=== PATIENT | male | born 1975 | race Caucasian/White ===

== ENCOUNTER 2019-07-09 20:10 | Emergency (ER) | payer BC ==
[2019-07-09] MEDS ORDERED: Morphine 4 MG/ML VIAL (1 ml) 4 MG/ML VIAL IV ONE (21:46)
[2019-07-09] MEDS ORDERED: Ondansetron INJ* 2 MG/ML VIAL IV ONE (21:49)
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
[2019-07-09 23:50] VITALS: BP 136/86
== END 2019-07-09 23:45 | disposition home or self-care (01) ==
LOC: ED 20:10
DX: S52.301A Unspecified fracture of shaft of right radius, initial encounter for closed fracture (principal); V19.9XXA Pedal cyclist (driver) (passenger) injured in unspecified traffic accident, initial encounter; Y93.55 Activity, bike riding; Y92.9 Unspecified place or not applicable; Z88.0 Allergy status to penicillin; Z87.891 Personal history of nicotine dependence
CPT/HCPCS: 96374; 96375; 99282; J2270; J2405

== ENCOUNTER 2019-07-11 11:32 | Day surgery (SDC) | payer BC, OTHER ==
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
[~2019-07-11 11:32] MED LIST: Buffered Lidocaine 1% SYRIN* 1 ML/SYRINGE INTRADERM ONE; Dexamethasone IV* 4 MG/ML 1 ML (4 MG) IV SLOW PU ONE; Famotidine IV* 10 MG/ML 2 ML (20 mg) IV ONE; Lactated Ringers 1000 ML Bag* 1,000 ML IV SCH
[2019-07-11] MEDS ORDERED: Dexamethasone IV* 4 MG/ML 1 ML (4 MG) ONE (11:54)
[2019-07-11] MEDS ORDERED: Famotidine IV* 10 MG/ML 2 ML (20 mg) ONE (11:54)
[2019-07-11] MEDS ORDERED: Clindamycin 900 MG IVPREMIX(* 900 MG/50 ML SDV IV ONE (12:19)
[2019-07-11] MEDS ORDERED: Midazolam* 1 MG/ML 5 ML VIAL (5 MG) ONE (12:45)
[2019-07-11] MEDS ORDERED: fentaNYL* 50 MCG/ML 5 ML VIAL (250 MCG VIAL) ONE (12:45)
[2019-07-11] MEDS ORDERED: Propofol* 10 MG/ML 20 ML BTL ONE (12:46)
[2019-07-11] MEDS ORDERED: Lidocaine 2% PF * 5 ML VIAL ONE (12:46)
[2019-07-11] MEDS ORDERED: Ketorolac INJ* 30 MG/ML 1 ML VIAL ONE (12:46)
[2019-07-11] MEDS ORDERED: Ondansetron INJ* 2 MG/ML VIAL ONE (12:46)
[2019-07-11] MEDS ORDERED: Bupivacaine 0.5% SDV PF* 30ML VIAL ONE (12:55)
[2019-07-11] MEDS ORDERED: fentaNYL* 50 MCG/ML 2 ML VIAL (100 MCG VIAL) IV PRN (13:23)
[2019-07-11] MEDS ORDERED: HYDROmorphone INJ1* 1 MG/ML SYRINGE IV PRN (13:23)
[2019-07-11] MEDS ORDERED: oxyCODONE/Acetamin 5/325 MG* TAB PO PRN (13:23)
[2019-07-11] MEDS ORDERED: Naloxone* 0.4 MG/ML 1 ML VIAL IV PRN (13:23)
[2019-07-11] MEDS ORDERED: DiMENhydriNATE IV* 50 MG/ML VIAL IV PUSH PRN (13:23)
[2019-07-11] MEDS ORDERED: Ondansetron INJ* 2 MG/ML VIAL IV PRN (13:23)
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
[2019-07-11 15:42] VITALS: BP 130/90
== END 2019-07-11 15:37 | disposition home or self-care (01) ==
LOC: OREAST 11:32
PROVIDERS: ATTEND Orthopaedic Surgery
DX: S52.301A Unspecified fracture of shaft of right radius, initial encounter for closed fracture (principal); V19.3XXA Pedal cyclist (driver) (passenger) injured in unspecified nontraffic accident, initial encounter; Y93.55 Activity, bike riding; Y92.9 Unspecified place or not applicable; Z87.891 Personal history of nicotine dependence
CPT/HCPCS: 76000; C1713; C1776; J1100; J1885; J2250; J2405; J2704; J3010; J3490

== ENCOUNTER 2020-01-16 16:49 | Inpatient (IN) | payer OTHER ==
--- NOTE | 2020-01-16 18:59 | ED ---
Complex/Multi-Sys Presentation - HPI Summary HPI Summary: 44 year old male presents with low platelets. he woke up with blisters in his mouth. He noted petechiae across his body. he also had old blood in his nose. On Wednesday he noticed some blood in his urine. He states that he lifted something at work and develop ecchymosis of his abdomen right away. He states every time he scratches his arm he gets petechiae. He states he's never had this before. Denies any recent illness. Has no medical conditions. Denies any drug use. He was seen by his primary and was found to have low platelets. heme was consulted and they recommend a platelet transfusion. he is only on HCC , NMN, and resveratol. he does drink alcohol. - History Of Current Complaint Chief Complaint: EDGeneral Time Seen by Provider: 01/16/20 18:19 - Allergies/Home Medications Allergies/Adverse Reactions: Allergies Allergy/AdvReac Type Severity Reaction Status Date / Time Penicillins Allergy Unknown Verified 07/11/19 12:10 Reaction Details PMH/Surg Hx/FS Hx/Imm Hx Endocrine/Hematology History: Denies: Hx Anticoagulant Therapy Respiratory History: Denies: Hx Asthma Infectious Disease History: No Infectious Disease History: Denies: Traveled Outside the [place] in Last 30 Days - Family History Known Family History: Positive: Non-Contributory - Social History Alcohol Use: Weekly Alcohol Amount: 'most days of the week, 2-3 drinks/time' Substance Use Type: Reports: Marijuana Smoking Status (MU): Former Smoker Review of Systems Negative: Fever Negative: Chest Pain Negative: Shortness Of Breath Positive: Rash All Other Systems Reviewed And Are Negative: Yes Physical Exam Triage Information Reviewed: Yes Vital Signs On Initial Exam: Initial Vitals Temp Pulse Resp BP Pulse Ox 97.4 F 67 18 164/105 98 01/16/20 16:53 01/16/20 16:53 01/16/20 16:53 01/16/20 16:53 01/16/20 16:53 Vital Signs Reviewed: Yes Appearance: Positive: Well-Appearing Skin: Positive: Other - petechaie noted across body, ecchymosis to abd Head/Face: Positive: Normal Head/Face Inspection Eyes: Positive: Normal, EOMI, RENEE, Conjunctiva Clear ENT: Positive: Pharynx normal, TMs normal Respiratory/Lung Sounds: Positive: Clear to Auscultation, Breath Sounds Present Cardiovascular: Positive: Normal, RRR Abdomen Description: Positive: Nontender, Soft Bowel Sounds: Positive: Present Musculoskeletal: Positive: Normal Neurological: Positive: Normal Psychiatric: Positive: Normal Procedures - Sedation Patient Received Moderate/Deep Sedation with Procedure: No Diagnostics - Vital Signs Vital Signs Temp Pulse Resp BP Pulse Ox 01/16/20 16:53 97.4 F 67 18 164/105 98 - Laboratory Result Diagrams: 01/16/20 18:50 01/16/20 18:50 Lab Statement: Any lab studies that have been ordered have been reviewed, and results considered in the medical decision making process. Complex Multi-Symp Course/Dx Course Of Treatment: 44 year old male presents with low platelets. he woke up with blisters in his mouth. He noted petechiae across his body. he also had old blood in his nose. On Wednesday he noticed some blood in his urine. He states that he lifted something at work and develop ecchymosis of his abdomen right away. He states every time he scratches his arm he gets petechiae. He states he's never had this before. Denies any recent illness. Has no medical conditions. Denies any drug use. He was seen by his primary and was found to have low platelets. heme was consulted and they recommend a platelet transfusion. On exam has petechiae body. wbc normal. platelets 4. h/h normal. liver and bilirubin normal. discussed with dr Vazquez who came and saw patient. he states it is itp and discussed as patient does not want transfusion platelets will do not do such at this time. patient also declined ivig. will treat with decadron 40mg x4 days. recommends admission and cbc daily. discussed with dr hemphill who agrees to admit. - Diagnoses Differential Diagnoses/HQI/PQRI: Metabolic Abnormality, Sepsis, Other - thrombocytopenia Provider Diagnoses: Acute ITP Discharge ED - Sign-Out/Discharge Documenting (check all that apply): Patient Departure - Discharge Plan Condition: Stable Disposition: ADMITTED TO [facility] - Billing Disposition and Condition Condition: STABLE Disposition: Admitted to [facility]
[2020-01-16 19:16] LABS: Activated Partial Thrombo Time 32.6 seconds (26.0-38.0); INR 0.97 (0.82-1.09)
[2020-01-16 19:32] LABS: ABS Eosinophils 0.1 10^3/ul (0-0.6); ABS Lymphocytes 1.6 10^3/ul (1.0-4.8); ABS Monocytes 0.4 10^3/ul (0-0.8); Eosinophil % 1.5 %; Hematocrit 51 % (42-52); Hemoglobin 17.1 g/dL (14.0-18.0); Lymphocyte % 30.4 %; Mean Corpuscular HGB Conc 34 g/dL (31-36); Mean Corpuscular Hemoglobin 29 pg (27-31); Mean Corpuscular Volume 86 fL (80-94); Mean Platelet Volume 12.3 fL (7.4-10.4); Nucleated Red Blood Cells % 0.1; Red Blood Count 5.87 10^6 /uL (4.18-5.48); Red Cell Distribution Width 15 % (10-15); White Blood Count 5.1 10^3/uL (3.5-10.8)
[2020-01-16 19:33] LABS: Large Platelets Present
[2020-01-16 19:35] LABS: Platelet Count 4 10^3/uL (150-450)
[2020-01-16 19:40] LABS: TSH (Thyroid Stimulating Horm) 7.29 mcIU/mL (0.34-5.60)
[2020-01-16 19:59] LABS: ALT 61 U/L (7-52); Albumin 4.8 g/dL (3.2-5.2); Albumin/Globulin Ratio 1.7 (1-3); Alkaline Phosphatase 58 U/L (34-104); BUN/Creatinine Ratio 12.1 (8-20); Blood Urea Nitrogen 12 mg/dL (6-24); C Reactive Protein < 1.00 mg/L (<8.01); CO2 Carbon Dioxide 23 mmol/L (22-32); Calcium 9.9 mg/dL (8.6-10.3); Chloride 100 mmol/L (101-111); EGFR African American 99.4 (>60); EGFR Non-African American 82.1 (>60); Globulin 2.9 g/dL (2-4); Glucose 94 mg/dL (70-100); Magnesium 2.4 mg/dL (1.9-2.7); Sodium 135 mmol/L (135-145); Total Protein 7.7 g/dL (6.4-8.9)
[2020-01-16 20:13] LABS: Fibrinogen 236.9 mg/dL (110.8-404.3)
[2020-01-16 20:14] LABS: Corrected Retic Count 1.7 % (0.5-1.5); Hematocrit for Retic CNT 50 % (42-52); Immature Retic Fraction 0.53; RBC Retic Count 5.95 10^6/uL (4.18-5.48)
[2020-01-16 20:27] LABS: Anion Gap 12 mmol/L (2-11); Potassium 4.8 mmol/L (3.5-5.0)
[2020-01-16 20:32] LABS: LDH 275 U/L (140-271)
[2020-01-16 20:34] LABS: AST 35 U/L (13-39)
[2020-01-16 21:06] LABS: Hepatitis B Surface Antigen Nonreactive (Nonreactive)
[2020-01-16] MEDS ORDERED: Dexamethasone TAB* 4 MG PO ONE (21:10)
[2020-01-16 21:24] LABS: Hepatitis C Antibody Negative (Negative)
--- NOTE | 2020-01-16 21:42 | CONSULT ---
Consultation - Reason for Consultation Reason for Consultation: Thrombocytopenia Ordering Provider: Ronna Jimenez Chief Complaint: I am asked to evaluate this pleasant 44 year old gentleman who has presented to he ER with a platelet count of 4k.He was interviewed in the ER in the presence of his significant other. He notes over the past few days the development of petechiae involving the lower extremities as well as a "blood blister" on his tongue. He also notes an episode of hematuria which has since resolved. He otherwise feels well without the presence of systemic symptoms. No weight loss, no night sweats, no recent illnesses nor ill contacts. He does note a great deal of stress at work and drinking more heavily then in the past. No Quinine containing products. He reports no fever, no neurologic symptoms. No history of autoimmune disorders, hepatitis, HIV nor family history of blood dyscrasias. No new medications In the ER WBC 5.1 Hg 17 platelets 4 MPV elevated at 12.3, WBC differential normal. PTinr 0.97 and PTT 32, TSH mildly elevated at 7.29 with T4 pending. Retics 1.7, creatinine 0.99 bilirubin 0.7 AST 35 ALT 61 LDH 275 Afebrile at 97.4 History of Present Illness: As noted above isolated thrombocytopenia with findings as outlined Allergies/Medications Allergies/Adverse Reactions: Allergies Allergy/AdvReac Type Severity Reaction Status Date / Time Penicillins Allergy Unknown Verified 07/11/19 12:10 Reaction Details History - Past Medical History Hx Arthritis: No Hx Blood Dyscrasias: Yes - current thrombocytopenia Hx Cancer: No Hx Cardiac Disorders: No Hx Circulatory Problems: No Hx Diabetes: No Hx Hypercholesterolemia: No Hx Hypertension: Yes - current in ER Hx Musculoskeletal Deformity: No Surgical History: None Hx Endocrine Problem: No - Family History Hx Family Cancer: No Hx Family Cerebrovascular Accident: No Hx Family Cardiac Disorders: No Hx Family Rheumatoid Arthritis: No - Social History Hx Alcohol Use: Yes - More significant recently Hx Tobacco Use: No Review of Systems - Review of Systems Dermatology: Positive: Rash - lower extremity petechiae HEENT: Positive: Other - small "blood blister" tongue Eyes: Positive: Normal Thyroid: Positive: Other - elevated TSH in ER Pulmonary: Positive: Normal Cardiology: Positive: Normal Gastroenterology: Positive: Normal Genital - Urinary: Positive: Hematuria Musculoskeletal: Negative: Joint Pain, Joint Stiffness, Arthritis, Osteoporosis, Low Back Pain , Sciatica, Joint Deformities, Kyphoscoliosis, Other Endocrinology: Positive: Normal Hematologic/Lymphatic: Positive: Easy Bruising, Other - thrombocytopenia Neurology: Positive: Normal Psychiatry: Positive: Other - stress Allergic/Immunologic: Negative: Hx Anaphylaxis, Hx Angioedema, Hx Environmental, Hx Seasonal, Asthma, Hx HIV, Immunocompromise, Swollen Glands LymphNodes, Other Physical Exam - Physical Exam Physical Examination: Alert and conversant PERRLA, EOMI Neck supple Cardiac RRR Abdomen soft and nontender Neuro nonfocal Petechiae lower extremities Oropharynx with small "blood blister" left lateral tongue margin Results - Lab Results Lab Results: 01/16/20 01/16/20 01/16/20 18:50 18:50 18:50 WBC 5.1 RBC 5.87 H RBC (Retic) 5.95 H Hgb 17.1 Hct 51 HCT (Retic) 50 MCV 86 MCH 29 MCHC 34 RDW 15 Plt Count 4 L* MPV 12.3 H Neut % (Auto) 59.1 Lymph % (Auto) 30.4 Upson % (Auto) 8.2 Eos % (Auto) 1.5 Baso % (Auto) 0.8 Absolute Neuts (auto) 3.0 Absolute Lymphs (auto) 1.6 Absolute Monos (auto) 0.4 Absolute Eos (auto) 0.1 Absolute Basos (auto) 0.0 Absolute Nucleated RBC 0.0 Nucleated RBC % 0.1 Large Platelets Present Retic Count, Calc 1.5 Corrected Retic Count 1.7 H Retic Shift Factor 1.0 Retic Production Index 1.70 Immature Retic Fraction 0.53 Mean Retic Volume 107.5 INR (Anticoag Therapy) 0.97 APTT 32.6 Fibrinogen 236.9 Sodium 135 Potassium 4.8 Chloride 100 L Carbon Dioxide 23 Anion Gap 12 H BUN 12 Creatinine 0.99 Est GFR ( Amer) 99.4 Est GFR (Non-Af Amer) 82.1 BUN/Creatinine Ratio 12.1 Glucose 94 Calcium 9.9 Magnesium 2.4 Total Bilirubin 0.70 AST 35 ALT 61 H Alkaline Phosphatase 58 Lactate Dehydrogenase 275 H C-Reactive Protein < 1.00 Total Protein 7.7 Albumin 4.8 Globulin 2.9 Albumin/Globulin Ratio 1.7 TSH 7.29 H Blood Type Antibody Screen 01/16/20 18:50 WBC RBC RBC (Retic) Hgb Hct HCT (Retic) MCV MCH MCHC RDW Plt Count MPV Neut % (Auto) Lymph % (Auto) Upson % (Auto) Eos % (Auto) Baso % (Auto) Absolute Neuts (auto) Absolute Lymphs (auto) Absolute Monos (auto) Absolute Eos (auto) Absolute Basos (auto) Absolute Nucleated RBC Nucleated RBC % Large Platelets Retic Count, Calc Corrected Retic Count Retic Shift Factor Retic Production Index Immature Retic Fraction Mean Retic Volume INR (Anticoag Therapy) APTT Fibrinogen Sodium Potassium Chloride Carbon Dioxide Anion Gap BUN Creatinine Est GFR ( Amer) Est GFR (Non-Af Amer) BUN/Creatinine Ratio Glucose Calcium Magnesium Total Bilirubin AST ALT Alkaline Phosphatase Lactate Dehydrogenase C-Reactive Protein Total Protein Albumin Globulin Albumin/Globulin Ratio TSH Blood Type O Positive Antibody Screen Negative Assessment and Plan Impression: 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 Normal Hg, neurological status, bilirubin and creatinine inconsistent with TTP Plan: Reviewed in detail with patient, significant other and Emergency room staff. Additional lab work for ELMA, Hepatitis B and C serologies, HIV serology, H Pylori AB, Serum IGA. Initiate Dexamethasone 40 mg PO or IV Daily for four days with PPI coverage. If necessary this can be pulsed every 14 days for 1-2 additional cycles dependent upon Platelet response. Given prior hematuria counselled patient for consideration of IVIG at 1000 mg/ kg Daily for 2 days (Total dosing 2000 mg/kg) and consideration for platelet transfusion should active bleeding develop or recur. After a thorough review of options he has made an informed decision to decline IVIG at this time. Obtain a serum IgA level to exclude IgA deficiency should IVIG be utilized in the future Follow serial platelet counts and follow up labs as ordered . Will continue to follow
[2020-01-16 21:43] LABS: HIV 4th Generation Nonreactive (Nonreactive)
[2020-01-16 22:01] LABS: T4, Total 7.51 mcg/dL (6.09-12.23)
[2020-01-17] MEDS: Pantoprazole TAB * 40 MG TAB PO SCH ×2 (00:07→07:36)
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
--- NOTE | 2020-01-17 02:26 | HP ---
HISTORY AND PHYSICAL: DATE OF ADMISSION: ADDENDUM: He reported that he had 2 more clear urinations and he was evaluated by Dr. Aron Vazquez of Hematology/Oncology, who discussed possible therapy such as steroids and IVIG. The patient wanted to avoid IV steroids, as p.o. steroids could be given, and was hesitant to proceed with IVIG. He was started on dexamethasone 40 mg p.o. versus IV daily for 4 days. Additional lab work was ordered to rule out secondary causes of what is suspected to be ITP. He is on 3 herbal supplements, which he restarted it about 6 weeks ago. These include active hexose correlated compound, nicotinamide, mononucleotide, and resveratrol. PAST MEDICAL HISTORY: Some anxiety with recent alprazolam order, which he has not picked up yet and HSV. PAST SURGICAL HISTORY: ORIF of the right forearm fracture in June [address] Santa and vasectomy. MEDICATIONS: None. ALLERGIES: He suspects PENICILLIN allergy as a child, unknown details. FAMILY HISTORY: His father of brain cancer at age 55. His mother is alive at age 73. Paternal aunt of breast cancer. Another paternal aunt had a type of cancer, which required lymph node biopsy. No children. SOCIAL HISTORY: The patient is a former smoker, half-pack per day for 7 years, quit about 10 years ago. He drinks about 10 drinks a week. No drug use. He works at a [employer] for the last 9 months, increasingly stressful job working about 12 hours a day and some lifting component. He desires to be a full code. His medical surrogate is his significant other, Kelly Jackson. REVIEW OF SYSTEMS: A complete 14-point review of systems negative except as per HPI. He denies any abdominal pain, diarrhea, melena, hematochezia or hemoptysis. Epistaxis has resolved. He also attests that he has been extremely good and sensitive for a long time. He recently started probiotic, which lessened his symptoms, but then he started to eat more gluten given stress eating. PHYSICAL EXAMINATION VITAL SIGNS: Temperature 97.4, heart rate 67, respiratory rate 18, satting 98 % on room air, blood pressure 164/105. HEENT: Normocephalic, atraumatic. Pupils equally round and reactive to light. Extraocular motions intact. I do not appreciate any blood blisters or other hemorrhage inside the mouth. LUNGS: Clear to auscultation bilaterally with no wheezing, rales or rhonchi. CARDIOVASCULAR: Regular rate and rhythm. No murmurs, rubs or gallops. ABDOMEN: Soft, nontender, nondistended. EXTREMITIES: Warm, well perfused. No peripheral edema. SKIN: There are multiple petechiae and most prominent on the lower extremities , but some on his hands scattered throughout his body. NEURO: Cranial nerves II through XII intact. Alert and oriented x3. DIAGNOSTIC STUDIES/LAB DATA: White count 5.1, hemoglobin 17.1, hematocrit 51, platelets , retic count 1.7, RPI 1.7, INR is 0.97, aPTT 32.6, fibrinogen 236.9. Sodium 135, potassium 4.8, chloride 100, carbon dioxide 23, BUN 12, creatinine 0.99, glucose 94, magnesium 2.4, calcium 9.9, total bili is 0.7, AST 35, ALT 61, alk phos 58. LDH 275, CRP less than 1, total protein 7.7, albumin 4.8, TSH 7.29, total T4 is 7.51, free T3 is 3.80. Hepatitis B surface antigen nonreactive, hepatitis C antibody negative. HIV1 and 2 antibodies and p24 antigens of 4th generation nonreactive. Imaging: None. EKG: None. ASSESSMENT AND PLAN: Stella Panda is a 44-year-old male with no significant past medical history, although frequent alcohol use and is on multiple herbal supplements including AHCC (active hexose correlated compound), nicotinamide, mononucleotide, and resveratrol, whose has had about a week of increased fatigue and then development of petechiae, epistaxis, and hematuria. He has had outpatient platelet count less than 1000 the day prior to admission, appreciate recommendations from Hematology/Oncology, Dr. Aron Vazquez, who does recommend additional lab work to include Tanmay-Tovar virus, stool Helicobacter pylori test, immunoglobulin A of the serum, ELMA, and initiation of dexamethasone 40 mg p.o. daily. We will get CBCs daily. We will wait for a accounts payable supervisor peripheral smear examination, but low suspicion for TTP given his lack of other abdominal signs, altered mental status, anemia or renal dysfunction. He can eat a heart-healthy diet. He is a full code. [id number]/[facility] #: [id number] [facility]
[2020-01-17 07:31] LABS: ABS Lymphocytes 0.8 10^3/ul (1.0-4.8); ABS Neutrophils 3.9 10^3/ul (1.5-7.7); Eosinophil % 0.1 %; Hematocrit 52 % (42-52); Hemoglobin 18.1 g/dL (14.0-18.0); Mean Corpuscular HGB Conc 35 g/dL (31-36); Mean Corpuscular Hemoglobin 29 pg (27-31); Mean Corpuscular Volume 85 fL (80-94); Mean Platelet Volume 11.5 fL (7.4-10.4); Nucleated Red Blood Cells % 0.2; Platelet Count 4 10^3/uL (150-450); Red Blood Count 6.14 10^6 /uL (4.18-5.48); Red Cell Distribution Width 14 % (10-15); White Blood Count 4.7 10^3/uL (3.5-10.8)
[2020-01-17] MEDS: Dexamethasone TAB* 4 MG PO SCH (07:37)
--- NOTE | 2020-01-17 07:41 | PN ---
Subjective Date of Service: 01/17/20 Interval History: HD 2 on 01/17 44 M with no past medical history presented with epistaxis, easy bruising, gross hematuria and petechiae preceeded by wheezing, BUTLER and fatigue. He was seen in his PCP office and was sent to ER because of thrombocytopenia. His platelet count is 4000. 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 On dexamethasone. Declined IVIG and transfusion. Vitals: stable Patient seen and examined at bedside. Patient still not sure about IVIG. He does not have new bruising and any fall. Discussed about fall precaution. patient has been using OTC herbs for ageing and HPV. Today he feels well and does not have any Sx. Objective Active Medications: Dexamethasone (Decadron Tab*) 40 mg PO DAILY [facility] Stop: 01/19/20 09:01 Pantoprazole Sodium (Protonix Tab*) 40 mg PO DAILY [facility] Last Admin: 01/17/20 00:07 Dose: 40 mg Vital Signs - 8 hr 01/17/20 01/17/20 01/17/20 00:05 00:20 03:23 Temperature 97.7 F 97.7 F Pulse Rate 75 81 Respiratory 16 16 19 Rate Blood Pressure 136/88 124/86 (mmHg) O2 Sat by Pulse 98 97 Oximetry Oxygen Devices in Use Now: None Exam: Gen: Well appearing 44 yo male in NAD HEENT: MMM, no petechiae or ulcerations CV: RRR, no m/r/g Resp: clear with no added sounds. Abd: soft, nondistended and nontender. Has ecchymosis on abdomen. Ext: no edema Skin: diffuse petechiae, concentrated over the legs and forearms, resolving ecchymosis over the legs and abdomen Result Diagrams: 01/18/20 05:16 01/18/20 05:16 Assess/Plan/Problems-Billing Assessment: 44 M with no past medical history presented with epistaxis, easy bruising, gross hematuria and petechiae preceeded by wheezing, BUTLER and fatigue. He was seen in his PCP office and was sent to ER because of thrombocytopenia. His platelet count is 4000. 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 On dexamethasone. Declined IVIG and transfusion. D/D: ITP(primary>secondary), TTP, drug-induced, hereditary thrombocytopenia, pseudo, post-infectious - Patient Problems (1) Severe thrombocytopenia Current Visit: Yes Status: Acute Code(s): D69.6 - THROMBOCYTOPENIA, UNSPECIFIED SNOMED Code(s): 298833807 Comment: -has epistaxis, easy bruising and gross hematuria -Plt 6000 today; goal is>[id number] -most likely primary ITP; other DD: secondary ITP, TTP, drug-induced, pseudo -pending work-up results for autoimmune ds. -on dexamethasone 40 mg -(01/16-01/19) -monitor for bleeding; fall precaution -monitor CBC daily. (2) DVT prophylaxis Current Visit: Yes Status: Acute Code(s): Z29.9 - ENCOUNTER FOR PROPHYLACTIC MEASURES, UNSPECIFIED SNOMED Code(s): 294306806 Comment: -ambulate (3) Full code status Current Visit: Yes Status: Acute Code(s): Z78.9 - OTHER SPECIFIED HEALTH STATUS SNOMED Code(s): 666401910 Status and Disposition: Inpatient Hem/Onc following Attending: Shannan Hu Attestation Documenting Resident: Omayra Rios Supervising Physician: Shannan Hu Attending/Supervising Physician Comment: 44M previously healthy presents with petechiae, hematuria, found with platelets of 4 concerning for ITP, now on dexamethasone and declining IVIG and plt tx. No longer bleeding, but amenable to transfusion if so. Can be discharged when platelets > 10k. Attestation: This service has been performed in part by a resident under the direction of a teaching physician.I, Shannan Hu, performed the service, or was physically present during the critical, or brown portions of the service, furnished by the resident. I participated in the management of the patient.
[2020-01-17 08:05] LABS: Urine Appearance Clear; Urine Bilirubin Negative (Negative); Urine Blood 1+ (Negative); Urine Color Yellow; Urine Glucose Negative (Negative); Urine Ketones Negative (Negative); Urine Nitrite Negative (Negative); Urine Protein Negative (Negative); Urine Specific Gravity 1.021 (1.010-1.030); Urine Urobilinogen Negative (Negative)
[2020-01-17 08:09] LABS: Urine Bacteria Absent (Absent); Urine Red Blood Cell 3+(>10/hpf) (Absent); Urine White Blood Cell Trace(0-5/hpf) (Absent)
--- NOTE | 2020-01-17 11:10 | PN ---
Progress Note - Progress Note Date of Service: 01/17/20 SOAP: Subjective: [Patient reports feeling well. No new bruising or bleeding overnight. Denies hematuria/hematchezia.] Objective: [ Vital Signs: Temp Pulse Resp BP Pulse Ox 97.7 F 71 16 127/79 97 01/17/20 07:33 01/17/20 07:33 01/17/20 07:33 01/17/20 07:33 01/17/20 07:33 Dexamethasone (Decadron Tab*) 40 mg PO DAILY [facility] Stop: 01/19/20 09:01 Last Admin: 01/17/20 07:37 Dose: 40 mg Pantoprazole Sodium (Protonix Tab*) 40 mg PO DAILY [facility] Last Admin: 01/17/20 07:36 Dose: 40 mg Laboratory Results - last 24 hr 01/16/20 01/16/20 01/16/20 18:50 18:50 18:50 WBC 5.1 RBC 5.87 H RBC (Retic) 5.95 H Hgb 17.1 Hct 51 HCT (Retic) 50 MCV 86 MCH 29 MCHC 34 RDW 15 Plt Count 4 L* MPV 12.3 H Neut % (Auto) 59.1 Lymph % (Auto) 30.4 [place] % (Auto) 8.2 Eos % (Auto) 1.5 Baso % (Auto) 0.8 Absolute Neuts (auto) 3.0 Absolute Lymphs (auto) 1.6 Absolute Monos (auto) 0.4 Absolute Eos (auto) 0.1 Absolute Basos (auto) 0.0 Absolute Nucleated RBC 0.0 Nucleated RBC % 0.1 Large Platelets Present Retic Count, Calc 1.5 Corrected Retic Count 1.7 H Retic Shift Factor 1.0 Retic Production Index 1.70 Immature Retic Fraction 0.53 Mean Retic Volume 107.5 INR (Anticoag Therapy) 0.97 APTT 32.6 Fibrinogen 236.9 Sodium 135 Potassium 4.8 Chloride 100 L Carbon Dioxide 23 Anion Gap 12 H BUN 12 Creatinine 0.99 Est GFR ( Amer) 99.4 Est GFR (Non-Af Amer) 82.1 BUN/Creatinine Ratio 12.1 Glucose 94 Calcium 9.9 Magnesium 2.4 Total Bilirubin 0.70 AST 35 ALT 61 H Alkaline Phosphatase 58 Lactate Dehydrogenase 275 H C-Reactive Protein < 1.00 Total Protein 7.7 Albumin 4.8 Globulin 2.9 Albumin/Globulin Ratio 1.7 TSH 7.29 H Free T4 Thyroxine (T4) 7.51 Free T3 3.80 Urine Color Urine Appearance Urine pH Ur Specific [place] Urine Protein Urine Ketones Urine Blood Urine Nitrate Urine Bilirubin Urine Urobilinogen Ur Leukocyte Esterase Urine WBC (Auto) Urine RBC (Auto) Urine Bacteria Urine Glucose Urine Ascorbic Acid Hep Bs Antigen Hepatitis C Antibody Hepatitis C Ab Index HIV 1&2 Ab/P24 Ag 4thGn Blood Type Antibody Screen 01/16/20 01/16/20 01/16/20 18:50 18:50 20:37 WBC RBC RBC (Retic) Hgb Hct HCT (Retic) MCV MCH MCHC RDW Plt Count MPV Neut % (Auto) Lymph % (Auto) [place] % (Auto) Eos % (Auto) Baso % (Auto) Absolute Neuts (auto) Absolute Lymphs (auto) Absolute Monos (auto) Absolute Eos (auto) Absolute Basos (auto) Absolute Nucleated RBC Nucleated RBC % Large Platelets Retic Count, Calc Corrected Retic Count Retic Shift Factor Retic Production Index Immature Retic Fraction Mean Retic Volume INR (Anticoag Therapy) APTT Fibrinogen Sodium Potassium Chloride Carbon Dioxide Anion Gap BUN Creatinine Est GFR ( Amer) Est GFR (Non-Af Amer) BUN/Creatinine Ratio Glucose Calcium Magnesium Total Bilirubin AST ALT Alkaline Phosphatase Lactate Dehydrogenase C-Reactive Protein Total Protein Albumin Globulin Albumin/Globulin Ratio TSH Free T4 Thyroxine (T4) Free T3 Urine Color Urine Appearance Urine pH Ur Specific [place] Urine Protein Urine Ketones Urine Blood Urine Nitrate Urine Bilirubin Urine Urobilinogen Ur Leukocyte Esterase Urine WBC (Auto) Urine RBC (Auto) Urine Bacteria Urine Glucose Urine Ascorbic Acid Hep Bs Antigen Nonreactive Hepatitis C Antibody Negative Hepatitis C Ab Index 0.02 HIV 1&2 Ab/P24 Ag 4thGn Nonreactive Blood Type O Positive Antibody Screen Negative 01/17/20 01/17/20 01/17/20 07:10 07:10 07:30 WBC 4.7 RBC 6.14 H RBC (Retic) Hgb 18.1 H Hct 52 HCT (Retic) MCV 85 MCH 29 MCHC 35 RDW 14 Plt Count 4 L* MPV 11.5 H Neut % (Auto) 82.6 Lymph % (Auto) 16.0 [place] % (Auto) 1.0 Eos % (Auto) 0.1 Baso % (Auto) 0.3 Absolute Neuts (auto) 3.9 Absolute Lymphs (auto) 0.8 L Absolute Monos (auto) 0.0 Absolute Eos (auto) 0.0 Absolute Basos (auto) 0.0 Absolute Nucleated RBC 0.0 Nucleated RBC % 0.2 Large Platelets Retic Count, Calc Corrected Retic Count Retic Shift Factor Retic Production Index Immature Retic Fraction Mean Retic Volume INR (Anticoag Therapy) APTT Fibrinogen Sodium Potassium Chloride Carbon Dioxide Anion Gap BUN Creatinine Est GFR ( Amer) Est GFR (Non-Af Amer) BUN/Creatinine Ratio Glucose Calcium Magnesium Total Bilirubin AST ALT Alkaline Phosphatase Lactate Dehydrogenase C-Reactive Protein Total Protein Albumin Globulin Albumin/Globulin Ratio TSH Free T4 0.86 Thyroxine (T4) Free T3 Urine Color Yellow Urine Appearance Clear Urine pH 6.0 Ur Specific [place] 1.021 Urine Protein Negative Urine Ketones Negative Urine Blood 1+ A Urine Nitrate Negative Urine Bilirubin Negative Urine Urobilinogen Negative Ur Leukocyte Esterase Negative Urine WBC (Auto) Trace(0-5/hpf) Urine RBC (Auto) 3+(>10/hpf) A Urine Bacteria Absent Urine Glucose Negative Urine Ascorbic Acid * A Hep Bs Antigen Hepatitis C Antibody Hepatitis C Ab Index HIV 1&2 Ab/P24 Ag 4thGn Blood Type Antibody Screen Exam: Gen: Well appearing 44 yo male in NAD HEENT: MMM, no petechiae or ulcerations CV: RRR, no m/r/g Resp: CTA, no w/c/r Abd: soft nonTTP Ext: no edema Skin: diffuse petechiae, concentrated over the legs, resolving ecchymosis over the legs and abdomen ] Assessment: [This is a 44 yo otherwise healthy male who presented with acute thrombocytopenia c/w ITP with an obvious inciting factor appreciated at this time. Platelets are stable on repeat today without any bleeding. Plan: [1. ITP - cont dexamethasone - 40 mg daily x 4 days (day 2 of 4) - transfuse platelets for any bleeding - expect response ~48-72h from initiation of steroids - monitor CBC daily Dispo: per hospitalist attending, recommend continued hospital stay until plt > 10K without bleeding. Hematology group will cont to follow closely]
[2020-01-18 05:47] LABS: ABS Lymphocytes 1.5 10^3/ul (1.0-4.8); Eosinophil % 0.2 %; Hematocrit 48 % (42-52); Hemoglobin 16.2 g/dL (14.0-18.0); Lymphocyte % 12.3 %; Mean Corpuscular HGB Conc 34 g/dL (31-36); Mean Corpuscular Hemoglobin 29 pg (27-31); Mean Corpuscular Volume 86 fL (80-94); Mean Platelet Volume 10.8 fL (7.4-10.4); Platelet Count 6 10^3/uL (150-450); Red Blood Count 5.57 10^6 /uL (4.18-5.48); Red Cell Distribution Width 14 % (10-15); White Blood Count 12.5 10^3/uL (3.5-10.8)
[2020-01-18] MEDS: Multivitamins/Minerals TAB PO SCH (07:34)
[2020-01-18] MEDS: Dexamethasone TAB* 4 MG PO SCH (07:34)
[2020-01-18 07:55] LABS: Calcium 9.1 mg/dL (8.6-10.3)
--- NOTE | 2020-01-18 07:59 | PN ---
Progress Note - Progress Note Date of Service: 01/18/20 SOAP: Subjective: No bleeding feels well, no gross hematuria reported Day+3 Dexamethasone Hep B, C and HIV negative Objective: Alert and conversant Abdomen soft Neuro nonfocal Improving petechiae lower extremity Cardiac mild tachycardia Vital Signs - 8 hr 01/18/20 01/18/20 03:07 07:22 Temperature 96.7 F 97.7 F Pulse Rate 77 74 Respiratory 16 18 Rate Blood Pressure 119/59 135/86 (mmHg) O2 Sat by Pulse 98 98 Oximetry Laboratory Results - last 24 hr 01/16/20 01/17/20 01/17/20 18:50 07:10 07:30 WBC RBC Hgb Hct MCV MCH MCHC RDW Plt Count MPV Neut % (Auto) Lymph % (Auto) [place] % (Auto) Eos % (Auto) Baso % (Auto) Absolute Neuts (auto) Absolute Lymphs (auto) Absolute Monos (auto) Absolute Eos (auto) Absolute Basos (auto) Absolute Nucleated RBC Nucleated RBC % Hem Pathologist Commnt Sodium Chloride Carbon Dioxide Calcium Free T4 0.86 Urine Color Yellow Urine Appearance Clear Urine pH 6.0 Ur Specific [place] 1.021 Urine Protein Negative Urine Ketones Negative Urine Blood 1+ A Urine Nitrate Negative Urine Bilirubin Negative Urine Urobilinogen Negative Ur Leukocyte Esterase Negative Urine WBC (Auto) Trace(0-5/hpf) Urine RBC (Auto) 3+(>10/hpf) A Urine Bacteria Absent Urine Glucose Negative Urine Ascorbic Acid * A 01/18/20 01/18/20 05:16 05:16 WBC 12.5 H RBC 5.57 H Hgb 16.2 Hct 48 MCV 86 MCH 29 MCHC 34 RDW 14 Plt Count 6 L* MPV 10.8 H Neut % (Auto) 79.3 Lymph % (Auto) 12.3 [place] % (Auto) 8.1 Eos % (Auto) 0.2 Baso % (Auto) 0.1 Absolute Neuts (auto) 10.0 H Absolute Lymphs (auto) 1.5 Absolute Monos (auto) 1.0 H Absolute Eos (auto) 0.0 Absolute Basos (auto) 0.0 Absolute Nucleated RBC 0.0 Nucleated RBC % 0.0 Hem Pathologist Commnt Sodium 135 Chloride 103 Carbon Dioxide 26 Calcium 9.1 Free T4 Urine Color Urine Appearance Urine pH Ur Specific [place] Urine Protein Urine Ketones Urine Blood Urine Nitrate Urine Bilirubin Urine Urobilinogen Ur Leukocyte Esterase Urine WBC (Auto) Urine RBC (Auto) Urine Bacteria Urine Glucose Urine Ascorbic Acid Intake and Output Last 24 Hours 01/16/20 01/17/20 01/18/20 01/19/20 06:59 06:59 06:59 06:59 Intake Total 0 880 Output Total 550 Balance 0 330 Weight 181 lb 6.4 oz Intake: Oral 0 880 Output: Urine 550 Other: Estimated Void Medium # Bowel Movements 0 # Voids 1 Dexamethasone (Decadron Tab*) 40 mg PO DAILY [facility] Stop: 01/19/20 09:01 Last Admin: 01/18/20 07:34 Dose: 40 mg Multivitamins/Minerals (Theragran/Minerals Tab*) 1 tab PO DAILY [facility] Last Admin: 01/18/20 07:34 Dose: 1 tab Assessment: ITP current Day+3 Dexamethasone Plan: Continue Day+3 Dexamethasone Follow CBC Await pending studies Neutrophilia and minor Platelet bump suggests impending response to steroids Will continue to follow
[2020-01-18 08:01] LABS: BUN/Creatinine Ratio 24.2 (8-20); EGFR African American 109.5 (>60); EGFR Non-African American 90.5 (>60)
[2020-01-18 09:54] LABS: Potassium 4.3 mmol/L (3.5-5.0)
--- NOTE | 2020-01-18 12:07 | PN ---
Subjective Date of Service: 01/18/20 Interval History: HD 3 on 01/18 44 M with no past medical history presented with epistaxis, easy bruising, gross hematuria and petechiae preceeded by wheezing, BUTLER and fatigue. He was seen in his PCP office and was sent to ER because of thrombocytopenia. His platelet count is 4000. 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 On dexamethasone (day 3/4) No acute overnight events Vitals: stable Patient seen and examined at bedside. Patient states he is feeling fine and his rash is getting better. Denies hematuria, hematochezia, melena and epistaxis. Objective Active Medications: Dexamethasone (Decadron Tab*) 40 mg PO DAILY [facility] Stop: 01/19/20 09:01 Last Admin: 01/18/20 07:34 Dose: 40 mg Multivitamins/Minerals (Theragran/Minerals Tab*) 1 tab PO DAILY [facility] Last Admin: 01/18/20 07:34 Dose: 1 tab Vital Signs - 8 hr 01/18/20 01/18/20 07:22 11:19 Temperature 97.7 F 97.6 F Pulse Rate 74 69 Respiratory 18 17 Rate Blood Pressure 135/86 140/86 (mmHg) O2 Sat by Pulse 98 96 Oximetry Oxygen Devices in Use Now: None Exam: Gen: Well appearing 44 yo male in NAD HEENT: MMM, no petechiae or ulcerations CV: RRR, no m/r/g Resp: clear with no added sounds. Abd: soft, nondistended and nontender. Has ecchymosis on abdomen. Ext: no edema Skin: diffuse petechiae, concentrated over the legs and forearms(improving), resolving ecchymosis over the legs and abdomen Result Diagrams: 01/18/20 05:16 01/18/20 05:16 Assess/Plan/Problems-Billing Assessment: 44 M with no past medical history presented with epistaxis, easy bruising, gross hematuria and petechiae preceeded by wheezing, BUTLER and fatigue. He was seen in his PCP office and was sent to ER because of thrombocytopenia. His platelet count is 4000. 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 On dexamethasone D/D: ITP(primary>secondary), TTP, drug-induced, hereditary thrombocytopenia, pseudo, post-infectious - Patient Problems (1) Severe thrombocytopenia Current Visit: Yes Status: Acute Code(s): D69.6 - THROMBOCYTOPENIA, UNSPECIFIED SNOMED Code(s): 885530964 Comment: -has epistaxis, easy bruising and gross hematuria -Plt 6000 today; goal is>[id number] -most likely primary ITP; other DD: secondary ITP, TTP, drug-induced, pseudo -pending work-up results for autoimmune ds. -on dexamethasone 40 mg -(01/16-01/19) -monitor for bleeding; fall precaution -monitor CBC daily. (2) DVT prophylaxis Current Visit: Yes Status: Acute Code(s): Z29.9 - ENCOUNTER FOR PROPHYLACTIC MEASURES, UNSPECIFIED SNOMED Code(s): 037539942 Comment: -ambulate (3) Full code status Current Visit: Yes Status: Acute Code(s): Z78.9 - OTHER SPECIFIED HEALTH STATUS SNOMED Code(s): 731406914 Status and Disposition: Inpatient Hem/Onc following Attending: Shannan Hu Attestation Documenting Resident: Omayra Rios Supervising Physician: Shannan Hu Attestation: This service has been performed in part by a resident under the direction of a teaching physician.I, Shannan Hu, performed the service, or was physically present during the critical, or brown portions of the service, furnished by the resident. I participated in the management of the patient.
[2020-01-18 20:28] LABS: Stool Helicobacter pylori Ag Negative (Negative)
[2020-01-19 05:02] LABS: ABS Lymphocytes 1.8 10^3/ul (1.0-4.8); ABS Monocytes 0.6 10^3/ul (0-0.8); ABS Neutrophils 7.9 10^3/ul (1.5-7.7); Eosinophil % 0.1 %; Hematocrit 45 % (42-52); Hemoglobin 15.2 g/dL (14.0-18.0); Lymphocyte % 17.2 %; Mean Corpuscular HGB Conc 34 g/dL (31-36); Mean Corpuscular Hemoglobin 29 pg (27-31); Mean Corpuscular Volume 85 fL (80-94); Mean Platelet Volume 10.2 fL (7.4-10.4); Platelet Count 12 10^3/uL (150-450); Red Blood Count 5.26 10^6 /uL (4.18-5.48); Red Cell Distribution Width 14 % (10-15); White Blood Count 10.3 10^3/uL (3.5-10.8)
--- NOTE | 2020-01-19 07:12 | PN ---
Subjective Date of Service: 01/19/20 Interval History: HD 4 on 01/19 44 M with no past medical history presented with epistaxis, easy bruising, gross hematuria and petechiae preceeded by wheezing, BUTLER and fatigue. He was seen in his PCP office and was sent to ER because of thrombocytopenia. His platelet count is 4000. 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 On dexamethasone (day 03/02) No acute overnight events vitals; stable Patient seen and examined at bedside. Patient feeling well. His rash is fading away and ecchymosis are changing colors. Denies hematuria, melena and hematemesis. He is aware that he needs to be careful to avoid fall and should f/u as outpatient with Dr. euceda Objective Active Medications: Dexamethasone (Decadron Tab*) 40 mg PO DAILY [facility] Stop: 01/19/20 09:01 Last Admin: 01/18/20 07:34 Dose: 40 mg Multivitamins/Minerals (Theragran/Minerals Tab*) 1 tab PO DAILY [facility] Last Admin: 01/18/20 07:34 Dose: 1 tab Vital Signs - 8 hr 01/19/20 02:47 Temperature 97.9 F Pulse Rate 62 Respiratory 16 Rate Blood Pressure 145/84 (mmHg) O2 Sat by Pulse 98 Oximetry Oxygen Devices in Use Now: None Exam: Gen: Well appearing 44 yo male in NAD HEENT: MMM, no petechiae or ulcerations CV: RRR, no m/r/g Resp: clear with no added sounds. Abd: soft, nondistended and nontender. Has ecchymosis on abdomen. Ext: no edema Skin: diffuse petechiae, concentrated over the legs and forearms(improving), resolving ecchymosis over the legs and abdomen Result Diagrams: 01/19/20 04:36 01/18/20 05:16 Assess/Plan/Problems-Billing Assessment: 44 M with no past medical history presented with epistaxis, easy bruising, gross hematuria and petechiae preceeded by wheezing, BUTLER and fatigue. He was seen in his PCP office and was sent to ER because of thrombocytopenia. His platelet count is 4000. 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 On dexamethasone. D/D: ITP(primary>secondary), TTP, drug-induced, hereditary thrombocytopenia, pseudo, post-infectious - Patient Problems (1) Severe thrombocytopenia Current Visit: Yes Status: Acute Code(s): D69.6 - THROMBOCYTOPENIA, UNSPECIFIED SNOMED Code(s): 057327558 Comment: -has epistaxis, easy bruising and gross hematuria -Plt 63683 today; -most likely primary ITP; other DD: secondary ITP, TTP, drug-induced, pseudo -stool H.pylori negative. -completed dexamethasone 40 mg -(01/16-01/19) -will discharge today and patient can f/u with Dr. euceda (2) DVT prophylaxis Current Visit: Yes Status: Acute Code(s): Z29.9 - ENCOUNTER FOR PROPHYLACTIC MEASURES, UNSPECIFIED SNOMED Code(s): 074575284 Comment: -ambulate (3) Full code status Current Visit: Yes Status: Acute Code(s): Z78.9 - OTHER SPECIFIED HEALTH STATUS SNOMED Code(s): 773126988 Status and Disposition: Inpatient D/c today Attending: Shannan Hu Attestation Documenting Resident: Omayra Rios Supervising Physician: Shannan Hu Attestation: This service has been performed in part by a resident under the direction of a teaching physician.I, Shannan Hu, performed the service, or was physically present during the critical, or brown portions of the service, furnished by the resident. I participated in the management of the patient.
[2020-01-19 07:48] VITALS: BP 134/71
[2020-01-19] MEDS: Multivitamins/Minerals TAB PO SCH (09:34)
[2020-01-19] MEDS: Dexamethasone TAB* 4 MG PO SCH (09:34)
[2020-01-19 09:44] LABS: EBV Capsid Ag IgG Ab Positive (Negative); EBV Capsid Ag IgM Ab Negative (Negative); Epstein-Barr Nuclear Antigen Positive (Negative)
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
== END 2020-01-19 11:00 | disposition home or self-care (01) | DRG 813 ==
LOC: ED 16:49 → MED 22:10 → OBSVTOIN 01-18 11:00 → MED 01-18 19:44
PROVIDERS: ADMIT Internal Medicine; ATTEND Internal Medicine
DX: D69.3 Immune thrombocytopenic purpura (principal); F41.9 Anxiety disorder, unspecified; R03.0 Elevated blood-pressure reading, without diagnosis of hypertension; T38.0X5A Adverse effect of glucocorticoids and synthetic analogues, initial encounter; Y92.239 Unspecified place in hospital as the place of occurrence of the external cause; R94.6 Abnormal results of thyroid function studies; Z88.0 Allergy status to penicillin; Z87.891 Personal history of nicotine dependence; Z72.89 Other problems related to lifestyle
CPT/HCPCS: 36415; 80048; 80053; 81003; 81015; 82784; 83615; 83735; 84436; 84439; 84443; 84481; 85025; 85045; 85060; 85384; 85610; 85730; 86038; 86140; 86664; 86665; 86803; 86850; 86900; 86901; 87086; 87338; 87340; 87389; 99223; 99232; 99233; 99284; A9270-GY; G0378; J8540